=== PATIENT | female | born 1935 | race Caucasian/White ===

== ENCOUNTER 2017-01-03 20:21 | Inpatient (IN) | payer MEDICARE, OTHER ==
[~2017-01-03] VITALS: Ht 165.1 cm; Wt 79.6 kg
--- NOTE | ~2017-01-03 | HP ---
ADMIT: 01/03/2017 RM/LOC: 530 [facility] MR#: [id number] [address] [place] [id number] LAUR[place], [place] [address] Pre-OP History and Physical SEX: F AGE: 81 : 1935 DATE OF SERVICE: CHIEF COMPLAINT: Left ankle pain. HISTORY OF PRESENT ILLNESS: The patient is an 81-year-old white female, who was eating today and table collapsed on her and she was seen in [place] and was noted to have an ankle fracture with dislocation. PAST MEDICAL HISTORY: Significant for bilateral knee replacements, bilateral hip replacements. She has had back surgery. Apparently, one of her hip replacement is loose. She believed is schedule to see Dr. Huntley in [place]; she believes this is who it is. She denies any medical problems. MEDICATIONS: She takes: 1. Thyroid supplement. 2. Meloxicam. 3. Gabapentin for chronic pain. 4. Lortab. 5. Tramadol. 6: Tylenol. ALLERGIES: SHE DENIES ANY MEDICAL ALLERGIES. SOCIAL HISTORY: She denies smoking or drinking. PHYSICAL EXAMINATION: HEENT: Normocephalic and atraumatic. CV: Regular rate and rhythm. LUNGS: Benign. ABDOMEN: Benign. NEUROLOGICAL: Awake and oriented x3. VASCULAR: The patient has a valgus deformity of her ankle with ecchymosis ADMIT: 01/03/2017 RM/LOC: 530 [facility] MR#: [id number] [address] [place] [phone] [place], [address] [address] Pre-OP History and Physical SEX: F AGE: 81 : 1935 medially and tenting the skin medially. RADIOLOGICAL DATA: X-rays from outside were unable to be pulled out. ASSESSMENT AND PLAN: Left ankle fracture dislocations, so I manually reduced the patient's ankle to take tension off the skin, we did postreduction x-rays that showed a bimalleolar Buckner C-type ankle fracture. We will plan open reduction and internal fixation tomorrow; the patient ate between 3 and 4 o'clock today, so would be unable to do that tonight. The patient understands the risks and benefits of the surgical intervention which include, but not limited to infection, DVT, skin problems, nonunion, arthrofibrosis, , etc., and desires to proceed. Layo Giraldo MD/ dylon JOB #: [id number] CC: Layo Giraldo, Attending Physician Layo Giraldo, Family Physician
[~2017-01-03 20:21] MED LIST: ALENDRONATE SOD70 MG PO; ARTHRITIS TYLENOL PO; ASCORBIC ACID500 MG PO; BACITRACIN15 G1 TP; BENADRYL-DPS25 MG PO; CALCIUM + VITA1 EAC1 PO; CEPACOL SORE T1 EACH PO; COLACE-DPS100 MG PO; FLEXERIL DPS5 MG PO; HYDROCODON-ACE1 EAC4 PO; IRON325 M1 PO; MILK OF MAGNESI10 ML PO; MOBIC15 MG PO; NEURONTIN300 MG PO; NORCO 5-325 TA1 EACH PO; SENOKOT S1 TAB PO; SYNTHROID88 MCG PO; THERA1 EACH PO; TYLENOL DPS325 MG PO; ULTRAM DPS50 MG PO; VITAMIN C500 M1 PO; XARELTO10 MG PO
--- NOTE | 2017-01-05 11:49 | OR ---
ADMIT: 01/03/2017 RM/LOC: 530 [facility] MR#: [id number] 26[address] [facility] [address] [place] [phone] ANDRA AGUILAR [address] [place] [id number] Operative/Delivery Room Report SEX: F AGE: 81 : 1935 SURGERY DATE: 01/04/2017 SURGEON: Layo Giraldo MD PREOPERATIVE DIAGNOSIS: Left bimalleolar ankle fracture dislocation. POSTOPERATIVE DIAGNOSIS: Left bimalleolar ankle fracture dislocation. PROCEDURE PERFORMED: Open reduction and internal fixation of bimalleolar ankle fracture. PRODUCTION LEADER: LACIE Saldana ANESTHESIA: General. ESTIMATED BLOOD LOSS: Minimal. FLUIDS: Per anesthetic record. COMPLICATIONS: None. DRAINS: None. TOURNIQUET TIME: Approximately 46 minutes. CONDITION ON DISCHARGE: The patient returned to the recovery room in fair condition. INDICATION: The patient sustained the above injury last night. She had eaten, so she could not have surgery then. She also was seen by Medicine and cleared medically. She desires surgical intervention. She understood the risks and benefits of the procedure and desired to proceed. DESCRIPTION OF THE PROCEDURE: The patient was taken to the OR, transferred to the OR table, underwent general anesthesia. All bony prominences were well padded. A well-padded tourniquet applied to left lower extremity. The left lower extremity was prepped and draped in the usual sterile fashion. A lateral incision was made over the Buckner C fibula fracture for approximately 4 inches through the skin and subcutaneous tissue. The fracture was significantly comminuted transversely with small fragments. We were able to pull it out to length and apply a 7-hole combination plate to the lateral aspect of the fibula using 3.5 cortical screws and 3.5 locking screws. In the next last hole distally, I placed a syndesmotic screw from the plate across the fibula and into the tibia, holding my syndesmosis reduced. I then made a 2.5 to 3 incision over the medial ankle through the skin and subcutaneous tissue. The soft tissue extraction out of fracture line. The fracture then ADMIT: 01/03/2017 RM/LOC: 530 [facility] MR#: [id number] 26[address] [facility] [address] [place] [id number] [address] Operative/Delivery Room Report SEX: F AGE: 81 : 1935 reduced and 2 guidewires for the 4.0 cannulated screws were then placed. This was visualized on C-arm guidance, noted to be in excellent alignment. I over reamed these guidewires, then placed two 50 partially threaded 4.0 cannulated screws across the fracture squeezing this down. I viewed the construct, it was noted to be in anatomic alignment at the ankle joint. I stressed the ankle, it was nice and stable. Wounds thoroughly irrigated with bacitracin solution. Wounds closed using 2-0 Vicryl and sam. Wounds were washed, dried, dressed with sterile Xeroform, 4 x 4s, ABD, Webril. The patient placed in well-padded posterior fiberglass splint, secured with ankle at 90 degrees of dorsiflexion with Chris wraps. Drapes removed, tourniquet let down. Patient transferred back to recovery room after reversed from general anesthesia in fair condition. Layo Giraldo MD/ dylon JOB #: [id number] CC: Layo Giraldo, Attending Physician Layo Giraldo, Family Physician
[2017-01-07] MEDS ORDERED: SENOKOT S1 TAB PO (15:22)
--- NOTE | 2017-01-14 16:41 | ER ---
ADMIT: 01/03/2017 RM/LOC: ER [facility] MR#: [id number] [address] [id number] [place] [address] Emergency Room Report SEX: F AGE: 81 : 1935 DATE: 01/03/2017 HISTORY OF PRESENT ILLNESS: An 81-year-old female transferred down from [place]. She apparently was at a picnic when picnic table collapsed catching her left ankle. She is diagnosed with a trimalleolar fracture, and they asked for definitive care at this facility and subsequently transferred for the same. The patient arrives in no acute distress. There is an obvious deformity of the left ankle. 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 PHYSICAL EXAMINATION: Reveals an 81-year-old female in mild amount of distress complaining of ankle pain. There is an obvious deformity of the left ankle. Pulses are readily palpable. There is swelling and ecchymosis corresponding to both the medial and lateral malleolus. Dr. Giraldo saw the patient in the Emergency Department and placed the patient in posterior splint. Subsequently admitted for definitive care of the ankle fracture. Reece Suazo MD/ dylon JOB #: [id number] CC: Colt Gallegos MD, Attending Physician LACIE Dunn, Family Physician
--- NOTE | 2017-01-15 09:44 | CO ---
ADMIT: 01/03/2017 RM/LOC: 530 [facility] MR#: [id number] 2620 [facility] [address] [place] [phone] [place] [address] Consultation SEX: F AGE: 81 : 1935 DATE OF CONSULTATION: 01/04/2017 ATTENDING PHYSICIAN: Layo Giraldo CONSULTING PHYSICIAN: Jameel Souza MD REASON FOR CONSULT: Medical comanagement. HISTORY OF PRESENT ILLNESS: Ms. Johnson is a very pleasant 81-year-old white female, normally resides in [place], [place], who was visiting her brother for his birthday when a steel table collapsed on her left ankle and fractured it. She was transferred to the [facility] Emergency Department for Orthopedic care and consultation. Dr. Giraldo has evaluated the patient already and has opted to take her for open reduction and internal fixation of her left ankle fractures. I have been consulted for medical comanagement. PAST MEDICAL HISTORY: Ms. Johnson is otherwise pretty healthy. She does have some chronic osteoarthritis pain and hypothyroidism, but otherwise, denies any history of coronary disease. Denies any chest pain, shortness of breath, dyspnea on exertion, asthma, chronic lung disease. She is a lifetime nonsmoker. PAST SURGICAL HISTORY: She reports a previous cervical fusion, previous lumbar what sounds like a lumbar laminectomy, bilateral hip replacements, bilateral knee replacements. ALLERGIES: SHE IS ALLERGIC TO LATEX. SOCIAL HISTORY: She lives in [place], [place] in a home with her , they have two steps to enter the home. Her laundry facilities are on the main floor. She is a lifetime nonsmoker. She denies alcohol or recreational drug use. 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 FAMILY HISTORY: Noncontributory. REVIEW OF SYSTEMS: Again, she denies any history of coronary disease, chest pain, dyspnea on exertion, cough, wheeze, shortness of breath, known lung disease or heart disease, history of heart failure, nausea, vomiting, or diarrhea. The remainder of her review of systems as per HPI. All others reviewed and negative. PHYSICAL EXAMINATION: VITAL SIGNS: Blood pressure is 148/64, pulse 72, respirations 16, temp 98.2, O2 saturation is 100% on room air. GENERAL: She is awake, alert, no acute distress. Lying comfortable on the hospital bed. HEENT: Normocephalic and atraumatic. NECK: Supple. No lymphadenopathy. No thyromegaly. HEART: Regular rate and rhythm. No murmurs, gallops, or rubs. ADMIT: 01/03/2017 RM/LOC: 530 [facility] MR#: [id number] [address] [place] [phone] [place] [address] Consultation SEX: F AGE: 81 : 1935 LUNGS: Clear to auscultation bilaterally. ABDOMEN: Soft, nontender, nondistended. No rebound, guarding, or masses. EXTREMITIES: No cyanosis, clubbing, or edema. Her left lower extremity does show an obvious ankle deformity. LAB AND X-RAY DATA: CBC shows hemoglobin of 11.6, hematocrit of 35.1, and a platelet of 153. CMP without clinically significant abnormalities. X-ray of the left ankle shows a medial malleolar fracture and a mid shaft comminuted fibular fracture without significant displacement. Official Radiology read is pending. Chest x-ray shows borderline cardiomegaly and findings suspicion for possibly widened mediastinum. I am going to talk with Radiology about this. ASSESSMENT: 1. Left trimalleolar fracture of the ankle. 2. Hypothyroidism. 3. Chronic osteoarthritis pain. 4. LVH on EKG. PLAN: At this point, I do not see any contraindication to Ms. Johnson going down for open reduction internal fixation of her ankle fracture. We will plan on following along postoperatively. Jameel Souza MD/ dylon JOB #: [id number] CC: Layo Giraldo, Attending Physician Layo Giraldo, Family Physician
--- NOTE | 2017-01-26 16:09 | DS ---
ADMIT: 01/03/2017 RM/LOC: 530 [facility] MR#: [id number] [address] [address] [place], [place] [address] General Discharge Summary SEX: F AGE: 81 : 1935 ADMISSION DATE: 01/03/2017 DISCHARGE DATE: 01/06/2017 REASON FOR ADMISSION: Left ankle pain following an incident in which a table collapsed on the patient, and she subsequently suffered an ankle fracture with dislocation. She was admitted for evaluation and treatment of the ankle fracture. PAST MEDICAL HISTORY: Significant for bilateral knee replacement, bilateral hip replacements, back surgery, and hypothyroidism. PREOPERATIVE DIAGNOSIS: Left bimalleolar ankle fracture dislocation. POSTOPERATIVE DIAGNOSIS: Left trimalleolar ankle fracture dislocation. PROCEDURE PERFORMED: Open reduction and internal fixation of bimalleolar ankle fracture. SURGEON: Layo Grialdo MD TOP KNITTER: Jose Carlos Gardiner PA-C ANESTHESIA: General. ESTIMATED BLOOD LOSS: Minimal. COMPLICATIONS: None. TOURNIQUET TIME: 46 minutes. HOSPITAL COURSE: The patient was admitted on 01/03/2017, after sustaining a left bimalleolar ankle fracture dislocation on 01/04/2017. Dr. Giraldo performed an open reduction and internal fixation of a trimalleolar ankle fracture without any complications. The patient tolerated the procedure well. On postoperative day #1, the patient's pain was well controlled, and she participated well with physical therapy with well maintaining nonweightbearing ADMIT: 01/03/2017 RM/LOC: 530 [facility] MR#: [id number] [address] [phone] [place], [place] [address] General Discharge Summary SEX: F AGE: 81 : 1935 on the left lower extremity. By postoperative day #2, the patient was stable, safe, and ready for discharge to [facility] with followup in 2 weeks for casting of the left ankle. DISCHARGE MEDICATIONS: 1. Senokot 1 tablet twice a day. 2. Hydrocodone 5/325 mg every 4 hours as needed for pain. DISCHARGE INSTRUCTIONS: The patient was discharged to a snf facility with plans to follow up in the orthopedic office in 2 weeks for wound check and casting, in 6 weeks with x-ray. Follow up with primary care as directed. LACIE Glover / Layo Giraldo MD / dylon JOB #: [id number] CC: Layo Giraldo MD, Attending Physician Layo Giraldo MD, Family Physician
== END 2017-01-06 12:25 | DRG 493 ==
LOC: ER 20:21 → 5MS 21:45
PROVIDERS: ADMIT Orthopaedic Surgery
PROC: 0QSH04Z Reposition Left Tibia with Internal Fixation Device, Open Approach (ICD-10-PCS; principal; 2017-01-04)
PROC: 0QSK04Z Reposition Left Fibula with Internal Fixation Device, Open Approach (ICD-10-PCS; principal; 2017-01-04)
DX: S82.842A Displaced bimalleolar fracture of left lower leg, initial encounter for closed fracture (principal); T84.039A Mechanical loosening of unspecified internal prosthetic joint, initial encounter; W20.8XXA Other cause of strike by thrown, projected or falling object, initial encounter; E03.9 Hypothyroidism, unspecified; M19.90 Unspecified osteoarthritis, unspecified site; G89.29 Other chronic pain; Z96.653 Presence of artificial knee joint, bilateral; Z96.643 Presence of artificial hip joint, bilateral; Z98.1 Arthrodesis status; Z66 Do not resuscitate